=== PATIENT | male | born 1965 | race Caucasian/White ===

== ENCOUNTER 2018-02-19 12:01 | Emergency (ER) | payer OTHER ==
[2018-02-19 12:07] VITALS: BP 133/69; PULSE 94; TEMP 98.6; BMI 26.6
--- NOTE | 2018-02-19 12:28 | PDOC ---
History of Present Illness - General Chief Complaint: Pain Stated Complaint: PAIN/ LEGS, KNEES Time Seen by Provider: 02/19/18 12:10 - History of Present Illness Initial Comments: 53-year-old male with past medical history significant for bipolar disorder on Seroquel and Depakote presents for evaluation of bilateral anterior leg pain 2 weeks without any precipitating traumatic event. He has no other associated symptoms. His pain is increased with activity and relieved with rest. 02/19/18 12:23 Past History - Past Medical History Allergies/Adverse Reactions: Allergies Allergy/AdvReac Type Severity Reaction Status Date / Time Penicillins Allergy Unknown Swelling Verified 02/19/18 12:03 Home Medications: Ambulatory Orders Ibuprofen [Motrin -] 600 mg PO TID #30 tablet 02/19/18 COPD: No - Suicide/Smoking/Psychosocial Hx Smoking History: Current every day smoker Have you smoked in the past 12 months: Yes Number of Cigarettes Smoked Daily: 10 Information on smoking cessation initiated: No Hx Alcohol Use: No Drug/Substance Use Hx: No Review of Systems - Review of Systems Musculoskeletal: Yes: See HPI. No: Back Pain, Joint Pain, Muscle Pain All Other Systems: Reviewed and Negative *Physical Exam - Vital Signs Last Vital Signs Temp Pulse Resp BP Pulse Ox 98.6 F 94 H 20 133/69 96 02/19/18 12:03 02/19/18 12:03 02/19/18 12:03 02/19/18 12:03 02/19/18 12:03 - Physical Exam Comments: Lumbar spine skin color and temperature are normal. There is full nonpainful range of motion. 5 out of 5 strength in bilateral lower extremities. Patella and Achilles reflexes are 2+ and symmetric bilaterally. There is no clonus. Straight leg raise test and femoral nerve stretch test is negative bilaterally. Thighs and calves are soft and nontender. There are no gross sensory motor deficits. Neurovascularly intact. 02/19/18 12:24 Medical Decision Making - Medical Decision Making Is a 53-year-old male with bilateral anterior leg pain which is the picture of lumbar radiculopathy. I will have him follow-up with neurology and spine surgery for further evaluation and treatment plans I will treat his pain with Motrin. 02/19/18 12:25 02/19/18 12:26 *DC/Admit/Observation/Transfer Diagnosis at time of Disposition: Lumbar radicular pain - Discharge Dispostion Disposition: HOME Condition at time of disposition: Stable Decision to Admit order: No - Referrals Referrals: Chao Aguilar MD [Primary Care Provider] - Eugenio Tracy MD [Staff Physician] - Eugenio Thompson MD [Staff Physician] - - Patient Instructions Printed Discharge Instructions: Lumbar Radiculopathy, DI for Lumbar Radiculopathy Additional Instructions: It is unclear right now if your pain is coming from her lower back. I like for you to follow-up with neurology as well as spine surgery for further evaluation and treatment options. Given you Motrin for pain. He may take one pill 3 times a day with food he may discontinue the medication if it bothers her stomach. Return to the emergency room if symptoms worsen or go unresolved or if you experience any bowel or bladder incontinence or retention. - Post Discharge Activity
== END 2018-02-19 12:37 | disposition home or self-care (01) ==
LOC: JERFT 12:01
DX: M54.16 Radiculopathy, lumbar region (principal); F31.9 Bipolar disorder, unspecified; F17.210 Nicotine dependence, cigarettes, uncomplicated
CPT/HCPCS: 99281-25

== ENCOUNTER 2020-06-24 13:08 | Emergency (ER) | payer OTHER ==
[2020-06-24 13:26] VITALS: PULSE 100; BMI 24.0
[2020-06-24] MEDS ORDERED: LIDOCAINE 5% TOPICAL PATCH TP ONE (14:02)
[2020-06-24] MEDS ORDERED: GABAPENTIN 300 MG CAPSULE PO ONE (14:02)
[2020-06-24] MEDS ORDERED: ACETAMINOPHEN 500 MG TABLET (FP) PO ONE (14:02)
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
[2020-06-24] MEDS ORDERED: ACETAMINOPHEN 325 MG TABLET (FP) ONE (14:09)
[2020-06-24] MEDS ORDERED: LIDOCAINE 5% TOPICAL PATCH ONE (14:10)
[2020-06-24] MEDS ORDERED: GABAPENTIN 100 MG CAPSULE ONE (14:10)
[2020-06-24 16:30] VITALS: BP 120/70; TEMP 98.6
[2020-06-24] MEDS ORDERED: LIDOCAINE PATCH REMOVAL MC SCH (22:00)
== END 2020-06-24 18:50 | disposition home or self-care (01) ==
LOC: JER 13:08
DX: M25.551 Pain in right hip (principal)
CPT/HCPCS: 73523-TC-FY; 99285-25